=== PATIENT | male | born 1970 | race Caucasian/White ===

== ENCOUNTER 2017-12-15 17:49 | Emergency (ER) | payer BC ==
[~2017-12-15] VITALS: Ht 185.4 cm; Wt 106.6 kg
[2017-12-15 17:49] VITALS: BP 151/95
[2017-12-15] MEDS ORDERED: MECLIZINE HCL 25 MG TABLET ONE (18:29)
[2017-12-15] MEDS ORDERED: MECLIZINE HCL 12.5 MG TABLET PO ONE (18:30)
== END 2017-12-15 18:41 | disposition home or self-care (01) ==
LOC: ER 17:51
DX: H81.12 Benign paroxysmal vertigo, left ear (principal); F32.9 Major depressive disorder, single episode, unspecified; F41.9 Anxiety disorder, unspecified; F10.10 Alcohol abuse, uncomplicated
CPT/HCPCS: 99283; A4606; J8597; Z7610